=== PATIENT | male | born 1990 | race Caucasian/White ===

== ENCOUNTER 2019-01-14 17:38 | Emergency (ER) | payer MEDICAID ==
[~2019-01-14] VITALS: Ht 177.8 cm; Wt 84.1 kg
[2019-01-14] MEDS ORDERED: LORA0.5T2 PO (17:49)
[2019-01-14] MEDS ORDERED: OLAN5TAB2 PO (17:49)
[2019-01-14 18:13] LABS: BASOPHILS % (AUTO) 0.4 % (0.0-2.0); EOSINOPHILS % (AUTO) 0.1 % (1.0-6.0); HEMOGLOBIN 13.6 g/dL (13.5-17.5); LYMPHOCYTES # (AUTO) 1.6 K/uL (1.0-4.8); MEAN CORPUSCULAR VOLUME 85 fL (80-100); MONOCYTES % (AUTO) 6.5 % (2.0-9.0); NEUTROPHILS # (AUTO) 13.1 K/uL (1.8-7.7); PLATELET COUNT (AUTO) 393 K/uL (150-450); RED BLOOD CELL COUNT(AUTO) 4.68 MIL/uL (4.50-5.90)
[2019-01-14 18:26] LABS: ANION GAP 15 mmol/L (8-16); CALCIUM, TOTAL 9.9 mg/dL (8.8-10.5); CARBON DIOXIDE 22 mmol/L (22-29); CHLORIDE 103 mmol/L (98-107); CREATININE 1.33 mg/dL (0.60-1.30); GLOMERULAR FILTR. RATE CALC > 60 mL/min (>60); GLUCOSE,RANDOM 95 mg/dL (70-110); POTASSIUM 3.3 mmol/L (3.5-5.1); SODIUM SERUM 140 mmol/L (136-145); UREA NITROGEN, BLOOD 24 mg/dL (7-18)
[2019-01-14 18:34] LABS: ALANINE AMINOTRANSFERASE 27 U/L (12-78); ALBUMIN 4.1 g/dL (3.4-5.0); ALKALINE PHOSPHATASE 124 U/L (46-116); ASPARTATE AMINOTRANSFERASE 21 U/L (15-37); BILIRUBIN,TOTAL 0.5 mg/dL (0.1-1.0); TOTAL PROTEIN, SERUM 8.3 g/dL (6.4-8.2)
[2019-01-14 18:34] LABS: AMPHET/METH SCREEN,URINE NEGATIVE (NEGATIVE); BARBITURATE SCREEN, URINE NEGATIVE (NEGATIVE); BENZODIAZEPINES SCREEN,URINE NEGATIVE (NEGATIVE); CANNABINOID SCREEN,URINE NEGATIVE (NEGATIVE); COCAINE SCREEN,URINE NEGATIVE (NEGATIVE); METHADONE SCREEN, URINE NEGATIVE (NEGATIVE); OPIATE SCREEN,URINE NEGATIVE (NEGATIVE)
[2019-01-14 18:41] LABS: PHENCYCLIDINE SCREEN,URINE NEGATIVE (NEGATIVE)
[2019-01-14] MEDS ORDERED: LORazepam 2 MG TABLET PO ONE (19:00)
[2019-01-14 19:14] VITALS: BP 133/93
[2019-01-14 19:18] LABS: APPEARANCE,URINE CLEAR (CLEAR); BILIRUBIN,URINE NEGATIVE (NEGATIVE); GLUCOSE, URINE (UA) NEGATIVE (NEGATIVE); KETONES,URINE TRACE mg/dL (NEGATIVE); LEUKOCYTE ESTERASE ,URINE NEGATIVE (NEGATIVE); NITRATE,URINE NEGATIVE (NEGATIVE); OCCULT BLOOD,URINE NEGATIVE (NEGATIVE); PH,URINE 5.5 (5.0-8.0); PROTEIN,URINE NEGATIVE (NEGATIVE); UROBILINOGEN,URINE 0.2 mg/dL (<=1.0)
[2019-01-14] MEDS ORDERED: POTASSIUM CHLORIDE 20 MEQ ER TABLET PO ONE (19:30)
[2019-01-14] MEDS ORDERED: OLANZapine 5 MG RAPDIS TABLET PO ONE ×2 (20:45→21:00)
== END 2019-01-14 21:50 | disposition home or self-care (01) ==
LOC: EMS 17:38
DX: F31.9 Bipolar disorder, unspecified (principal); F32.9 Major depressive disorder, single episode, unspecified; F41.9 Anxiety disorder, unspecified; L55.9 Sunburn, unspecified; Z88.8 Allergy status to other drugs, medicaments and biological substances; Z79.899 Other long term (current) drug therapy
CPT/HCPCS: 36415; 71045; 80053; 80307; 81003; 85025; 99284; G0480

== ENCOUNTER 2019-01-24 06:39 | Emergency (ER) | payer MEDICAID ==
[~2019-01-24] VITALS: Ht 177.8 cm; Wt 88.6 kg
[~2019-01-24 06:39] MED LIST: AMOX1TAB16 PO; OLAN5TAB2 PO
[2019-01-24 07:09] LABS: BASOPHILS % (AUTO) 0.5 % (0.0-2.0); EOSINOPHILS % (AUTO) 1.5 % (1.0-6.0); HEMATOCRIT 38.6 % (41-53); LYMPHOCYTES # (AUTO) 1.5 K/uL (1.0-4.8); LYMPHOCYTES % (AUTO) 15.5 % (22.0-44.0); MEAN CORPUSCULAR HEMOGLOBIN 28.8 pg (26.0-34.0); MEAN CORPUSCULAR HGB CONC 33.6 G/dL (31.0-37.0); MEAN CORPUSCULAR VOLUME 86 fL (80-100); MONOCYTES # (AUTO) 0.6 K/uL (0.1-1.0); MONOCYTES % (AUTO) 6.1 % (2.0-9.0); NEUTROPHILS # (AUTO) 7.4 K/uL (1.8-7.7); NEUTROPHILS % (AUTO) 76.4 % (40.0-70.0); PLATELET COUNT (AUTO) 303 K/uL (150-450); RED BLOOD CELL COUNT(AUTO) 4.51 MIL/uL (4.50-5.90)
[2019-01-24 07:12] LABS: AMPHET/METH SCREEN,URINE NEGATIVE (NEGATIVE); BARBITURATE SCREEN, URINE NEGATIVE (NEGATIVE); BENZODIAZEPINES SCREEN,URINE NEGATIVE (NEGATIVE); CANNABINOID SCREEN,URINE NEGATIVE (NEGATIVE); COCAINE SCREEN,URINE NEGATIVE (NEGATIVE); METHADONE SCREEN, URINE NEGATIVE (NEGATIVE); OPIATE SCREEN,URINE NEGATIVE (NEGATIVE)
[2019-01-24 07:13] LABS: ANION GAP 10 mmol/L (8-16); CALCIUM, TOTAL 9.4 mg/dL (8.8-10.5); CARBON DIOXIDE 24 mmol/L (22-29); CHLORIDE 105 mmol/L (98-107); CREATININE 1.34 mg/dL (0.60-1.30); GLOMERULAR FILTR. RATE CALC > 60 mL/min (>60); GLUCOSE,RANDOM 99 mg/dL (70-110); POTASSIUM 3.6 mmol/L (3.5-5.1); SODIUM SERUM 139 mmol/L (136-145); UREA NITROGEN, BLOOD 18 mg/dL (7-18)
[2019-01-24 07:13] LABS: PHENCYCLIDINE SCREEN,URINE NEGATIVE (NEGATIVE)
[2019-01-24 07:19] LABS: ALANINE AMINOTRANSFERASE 26 U/L (12-78); ALBUMIN 3.8 g/dL (3.4-5.0); ALKALINE PHOSPHATASE 124 U/L (46-116); ASPARTATE AMINOTRANSFERASE 27 U/L (15-37); BILIRUBIN,TOTAL 0.5 mg/dL (0.1-1.0); TOTAL PROTEIN, SERUM 7.6 g/dL (6.4-8.2)
[2019-01-24] MEDS ORDERED: LORazepam 0.5 MG TABLET PO ONE (08:00)
[2019-01-24 08:29] VITALS: BP 142/79
[2019-01-28] MEDS ORDERED: ARIP300S IM (23:26)
== END 2019-01-24 08:50 | disposition home or self-care (01) ==
LOC: EMS 06:41
DX: F41.9 Anxiety disorder, unspecified (principal); F43.9 Reaction to severe stress, unspecified; F43.20 Adjustment disorder, unspecified; G47.00 Insomnia, unspecified; F31.9 Bipolar disorder, unspecified; F19.90 Other psychoactive substance use, unspecified, uncomplicated; Z88.8 Allergy status to other drugs, medicaments and biological substances
CPT/HCPCS: 36415; 80053; 80307; 85025; 99284; G0480

== ENCOUNTER 2019-01-24 09:29 | Emergency (ER) | payer MEDICAID ==
[~2019-01-24] VITALS: Ht 177.8 cm; Wt 88.6 kg
[2019-01-24] MEDS ORDERED: OLANZapine 5 MG TABLET PO ONE (10:00)
[2019-01-24 11:02] VITALS: BP 133/80
[2019-01-28] MEDS ORDERED: ARIP300S IM (23:26)
== END 2019-01-24 11:18 | disposition home or self-care (01) ==
LOC: EMS 09:29
DX: F41.9 Anxiety disorder, unspecified (principal); F31.9 Bipolar disorder, unspecified; F19.90 Other psychoactive substance use, unspecified, uncomplicated; Z88.8 Allergy status to other drugs, medicaments and biological substances

== ENCOUNTER 2019-02-13 15:52 | Emergency (ER) | payer MEDICAID ==
[~2019-02-13] VITALS: Ht 177.8 cm; Wt 90.0 kg
[~2019-02-13 15:52] MED LIST changes: -AMOX1TAB16 PO; +ARIP300S IM; -OLAN5TAB2 PO
[2019-02-13] MEDS ORDERED: LORazepam 2 MG TABLET PO ONE (16:30)
[2019-02-13] MEDS ORDERED: OLANZapine 5 MG TABLET PO ONE (16:30)
[2019-02-13 17:24] VITALS: BP 132/66
[2019-02-13 17:26] LABS: BASOPHILS % (AUTO) 0.5 % (0.0-2.0); EOSINOPHILS % (AUTO) 0.5 % (1.0-6.0); HEMATOCRIT 40.7 % (41-53); HEMOGLOBIN 13.8 g/dL (13.5-17.5); LYMPHOCYTES # (AUTO) 1.3 K/uL (1.0-4.8); LYMPHOCYTES % (AUTO) 13.2 % (22.0-44.0); MEAN CORPUSCULAR HGB CONC 33.8 G/dL (31.0-37.0); MEAN CORPUSCULAR VOLUME 86 fL (80-100); MONOCYTES # (AUTO) 0.6 K/uL (0.1-1.0); MONOCYTES % (AUTO) 6.7 % (2.0-9.0); NEUTROPHILS # (AUTO) 7.5 K/uL (1.8-7.7); NEUTROPHILS % (AUTO) 79.1 % (40.0-70.0); PLATELET COUNT (AUTO) 262 K/uL (150-450); RED BLOOD CELL COUNT(AUTO) 4.74 MIL/uL (4.50-5.90); RED CELL DISTRIBUTION WIDTH 13.4 % (11.5-14.5)
[2019-02-13 17:35] LABS: AMPHET/METH SCREEN,URINE NEGATIVE (NEGATIVE); BARBITURATE SCREEN, URINE NEGATIVE (NEGATIVE); BENZODIAZEPINES SCREEN,URINE NEGATIVE (NEGATIVE); CANNABINOID SCREEN,URINE NEGATIVE (NEGATIVE); COCAINE SCREEN,URINE NEGATIVE (NEGATIVE); METHADONE SCREEN, URINE NEGATIVE (NEGATIVE); OPIATE SCREEN,URINE NEGATIVE (NEGATIVE)
[2019-02-13 17:35] LABS: ANION GAP 16 mmol/L (8-16); CALCIUM, TOTAL 9.4 mg/dL (8.8-10.5); CARBON DIOXIDE 22 mmol/L (22-29); CHLORIDE 103 mmol/L (98-107); CREATININE 0.97 mg/dL (0.60-1.30); GLOMERULAR FILTR. RATE CALC > 60 mL/min (>60); GLUCOSE,RANDOM 90 mg/dL (70-110); POTASSIUM 3.4 mmol/L (3.5-5.1); SODIUM SERUM 141 mmol/L (136-145); UREA NITROGEN, BLOOD 9 mg/dL (7-18)
[2019-02-13 17:37] LABS: PHENCYCLIDINE SCREEN,URINE NEGATIVE (NEGATIVE)
[2019-02-13 17:41] LABS: ALANINE AMINOTRANSFERASE 16 U/L (12-78); ALBUMIN 4.3 g/dL (3.4-5.0); ALKALINE PHOSPHATASE 95 U/L (46-116); ASPARTATE AMINOTRANSFERASE 17 U/L (15-37); BILIRUBIN,TOTAL 0.4 mg/dL (0.1-1.0); TOTAL PROTEIN, SERUM 7.6 g/dL (6.4-8.2)
[2019-02-13] MEDS ORDERED: POTASSIUM CHLORIDE 10% 40 MEQ/30 ML LIQUID UDCUP PO ONE (18:15)
== END 2019-02-13 20:30 | disposition home or self-care (01) ==
LOC: EMS 15:55
DX: F41.9 Anxiety disorder, unspecified (principal); F10.129 Alcohol abuse with intoxication, unspecified; E87.6 Hypokalemia; F17.210 Nicotine dependence, cigarettes, uncomplicated; F31.9 Bipolar disorder, unspecified; F19.90 Other psychoactive substance use, unspecified, uncomplicated; Z88.8 Allergy status to other drugs, medicaments and biological substances; Y90.2 Blood alcohol level of 40-59 mg/100 ml
CPT/HCPCS: 36415; 80053; 80307; 85025; 99284; G0480

== ENCOUNTER 2019-02-17 20:54 | Emergency (ER) | payer MEDICAID ==
[~2019-02-17] VITALS: Ht 177.8 cm; Wt 95.5 kg
[~2019-02-17 20:54] MED LIST changes: +LITH300C3 PO; +OLAN5TAB2 PO
[2019-02-17 21:55] LABS: ANION GAP 9 mmol/L (8-16); BASOPHILS % (AUTO) 0.4 % (0.0-2.0); CALCIUM, TOTAL 9.4 mg/dL (8.8-10.5); CARBON DIOXIDE 28 mmol/L (22-29); CHLORIDE 101 mmol/L (98-107); CREATININE 1.16 mg/dL (0.60-1.30); EOSINOPHILS % (AUTO) 1.7 % (1.0-6.0); GLOMERULAR FILTR. RATE CALC > 60 mL/min (>60); GLUCOSE,RANDOM 102 mg/dL (70-110); HEMATOCRIT 38.6 % (41-53); HEMOGLOBIN 13.1 g/dL (13.5-17.5); LYMPHOCYTES # (AUTO) 1.9 K/uL (1.0-4.8); LYMPHOCYTES % (AUTO) 20.6 % (22.0-44.0); MEAN CORPUSCULAR HEMOGLOBIN 29.3 pg (26.0-34.0); MEAN CORPUSCULAR HGB CONC 33.9 G/dL (31.0-37.0); MEAN CORPUSCULAR VOLUME 86 fL (80-100); MONOCYTES # (AUTO) 0.7 K/uL (0.1-1.0); MONOCYTES % (AUTO) 7.6 % (2.0-9.0); NEUTROPHILS # (AUTO) 6.5 K/uL (1.8-7.7); NEUTROPHILS % (AUTO) 69.7 % (40.0-70.0); PLATELET COUNT (AUTO) 285 K/uL (150-450); POTASSIUM 3.6 mmol/L (3.5-5.1); RED BLOOD CELL COUNT(AUTO) 4.46 MIL/uL (4.50-5.90); RED CELL DISTRIBUTION WIDTH 13.4 % (11.5-14.5); SODIUM SERUM 138 mmol/L (136-145); UREA NITROGEN, BLOOD 23 mg/dL (7-18)
[2019-02-17 22:01] LABS: ALANINE AMINOTRANSFERASE 21 U/L (12-78); ALBUMIN 4.1 g/dL (3.4-5.0); ALKALINE PHOSPHATASE 104 U/L (46-116); ASPARTATE AMINOTRANSFERASE 27 U/L (15-37); BILIRUBIN,TOTAL 0.4 mg/dL (0.1-1.0); TOTAL PROTEIN, SERUM 7.3 g/dL (6.4-8.2)
[2019-02-18 03:52] VITALS: BP 122/88
[2019-02-18 04:45] LABS: AMPHET/METH SCREEN,URINE NEGATIVE (NEGATIVE); BARBITURATE SCREEN, URINE NEGATIVE (NEGATIVE); BENZODIAZEPINES SCREEN,URINE NEGATIVE (NEGATIVE); CANNABINOID SCREEN,URINE NEGATIVE (NEGATIVE); COCAINE SCREEN,URINE NEGATIVE (NEGATIVE); METHADONE SCREEN, URINE NEGATIVE (NEGATIVE); OPIATE SCREEN,URINE NEGATIVE (NEGATIVE)
[2019-02-18 04:53] LABS: PHENCYCLIDINE SCREEN,URINE NEGATIVE (NEGATIVE)
== END 2019-02-18 04:59 | disposition left against medical advice (07) ==
LOC: EMS 20:55
DX: F25.9 Schizoaffective disorder, unspecified (principal); F41.9 Anxiety disorder, unspecified; F31.9 Bipolar disorder, unspecified; F17.210 Nicotine dependence, cigarettes, uncomplicated; F15.10 Other stimulant abuse, uncomplicated; Z79.899 Other long term (current) drug therapy; Z98.890 Other specified postprocedural states; Z88.5 Allergy status to narcotic agent; Z88.8 Allergy status to other drugs, medicaments and biological substances
CPT/HCPCS: 36415; 80053; 80307; 85025; 99284; G0480

== ENCOUNTER 2019-03-24 01:47 | Inpatient (IN) | payer MEDICAID ==
[~2019-03-24] VITALS: Ht 177.8 cm; Wt 89.5 kg
[2019-03-24 03:18] LABS: ALANINE AMINOTRANSFERASE 32 U/L (12-78); ALBUMIN 3.9 g/dL (3.4-5.0); ALKALINE PHOSPHATASE 95 U/L (46-116); ANION GAP 9 mmol/L (8-16); ASPARTATE AMINOTRANSFERASE 25 U/L (15-37); BILIRUBIN,TOTAL 0.5 mg/dL (0.1-1.0); CALCIUM, TOTAL 9.3 mg/dL (8.8-10.5); CARBON DIOXIDE 26 mmol/L (22-29); CHLORIDE 106 mmol/L (98-107); CREATININE 1.12 mg/dL (0.60-1.30); GLOMERULAR FILTR. RATE CALC > 60 mL/min (>60); GLUCOSE,RANDOM 121 mg/dL (70-110); POTASSIUM 3.9 mmol/L (3.5-5.1); SODIUM SERUM 141 mmol/L (136-145); TOTAL PROTEIN, SERUM 7.1 g/dL (6.4-8.2)
[2019-03-24 03:24] LABS: BASOPHILS % (AUTO) 0.6 % (0.0-2.0); EOSINOPHILS % (AUTO) 2.3 % (1.0-6.0); HEMATOCRIT 39.2 % (41-53); HEMOGLOBIN 13.2 g/dL (13.5-17.5); LYMPHOCYTES # (AUTO) 1.8 K/uL (1.0-4.8); LYMPHOCYTES % (AUTO) 21.5 % (22.0-44.0); MEAN CORPUSCULAR HEMOGLOBIN 28.9 pg (26.0-34.0); MEAN CORPUSCULAR HGB CONC 33.7 G/dL (31.0-37.0); MEAN CORPUSCULAR VOLUME 86 fL (80-100); MONOCYTES # (AUTO) 0.7 K/uL (0.1-1.0); MONOCYTES % (AUTO) 8.4 % (2.0-9.0); NEUTROPHILS # (AUTO) 5.7 K/uL (1.8-7.7); NEUTROPHILS % (AUTO) 67.2 % (40.0-70.0); PLATELET COUNT (AUTO) 281 K/uL (150-450); RED BLOOD CELL COUNT(AUTO) 4.57 MIL/uL (4.50-5.90); RED CELL DISTRIBUTION WIDTH 13.6 % (11.5-14.5)
[2019-03-24 03:26] LABS: UREA NITROGEN, BLOOD 17 mg/dL (7-18)
[2019-03-24 03:30] LABS: AMPHET/METH SCREEN,URINE NEGATIVE (NEGATIVE); BARBITURATE SCREEN, URINE NEGATIVE (NEGATIVE); BENZODIAZEPINES SCREEN,URINE NEGATIVE (NEGATIVE); CANNABINOID SCREEN,URINE NEGATIVE (NEGATIVE); COCAINE SCREEN,URINE NEGATIVE (NEGATIVE); METHADONE SCREEN, URINE NEGATIVE (NEGATIVE); OPIATE SCREEN,URINE NEGATIVE (NEGATIVE)
[2019-03-24 03:35] LABS: PHENCYCLIDINE SCREEN,URINE NEGATIVE (NEGATIVE)
[2019-03-24] MEDS ORDERED: LORazepam 1 MG TABLET PO ONE (03:45)
[2019-03-24] MEDS ORDERED: OLANZapine 5 MG RAPDIS TABLET PO PRN (04:00)
[2019-03-24 06:12] VITALS: BP 128/79
[2019-03-24 08:16] VITALS: BP 108/61
[2019-03-24] MEDS ORDERED: IBUPROFEN 600 MG TABLET PO PRN (11:45)
[2019-03-24] MEDS ORDERED: ACETAMINOPHEN 325 MG TABLET PO PRN ×2 (11:45→12:00)
[2019-03-24] MEDS ORDERED: PROMETHAZINE HCL 25 MG TABLET PO PRN (12:00)
[2019-03-24] MEDS ORDERED: MAG HYDROX/AL HYDROX/SIMETH ES 30 ML SUSPENSION UDCUP PO PRN (12:00)
[2019-03-24] MEDS ORDERED: LOPERAMIDE HCL 2 MG CAPSULE PO PRN (12:00)
[2019-03-24] MEDS ORDERED: MAGNESIUM HYDROXIDE SUSPENSION 30 ML UDCUP PO PRN (12:00)
[2019-03-24] MEDS ORDERED: GuaiFENesin/D-METHORPHAN [SUGAR-FREE] 200-20MG/10 ML SYRUP UDCUP PO PRN (12:00)
[2019-03-24] MEDS ORDERED: TUBERCULIN, PURIFIED PROTEIN DERIVATIVE 5 TU/0.1 ML SYRINGE ID ONE (12:00)
[2019-03-24] MEDS ORDERED: HydrOXYzine PAMOATE 50 MG CAPSULE PO PRN (12:00)
[2019-03-24 16:00] VITALS: BP 110/64
[2019-03-24] MEDS: THIAMINE HCL 100 MG TABLET PO SCH (16:30)
[2019-03-24] MEDS: LORazepam 2 MG TABLET PO PRN (16:30)
[2019-03-24] MEDS: ZOLPIDEM TARTRATE 10 MG TABLET PO PRN (20:14)
[2019-03-24] MEDS ORDERED: OLANZapine 5 MG RAPDIS TABLET PO SCH (21:00)
[2019-03-24] MEDS ORDERED: DIVALPROEX SODIUM 500 MG ER TABLET PO SCH (21:00)
[2019-03-25] MEDS: NALTREXONE HCL 50 MG TABLET PO SCH (08:14)
[2019-03-25] MEDS: FOLIC ACID 1 MG TABLET PO SCH (08:14)
[2019-03-25] MEDS: MULTIVITAMINS WITH MINERALS, THERAPEUTIC TABLET PO SCH (08:14)
[2019-03-25] MEDS: THIAMINE HCL 100 MG TABLET PO SCH ×2 (08:14→17:05)
[2019-03-25 08:30] VITALS: BP 110/69
[2019-03-25 08:48] LABS: CHOL/HDL RATIO 2.8 (4.2-7.3); FREE T4 (FREE THYROXINE) 1.35 ng/dL (0.76-1.46); THYROID STIMULATING HORMONE 0.46 uIU/mL (0.36-3.74)
[2019-03-25] MEDS ORDERED: FLUoxetine HCL 20 MG CAPSULE PO SCH (09:00)
[2019-03-25] MEDS: LORazepam 2 MG TABLET PO PRN ×2 (13:34→20:50)
[2019-03-25 16:00] VITALS: BP 140/77
[2019-03-25] MEDS: ZOLPIDEM TARTRATE 10 MG TABLET PO PRN (20:50)
[2019-03-25] MEDS ORDERED: LITHIUM CARBONATE 300 MG CAPSULE PO SCH (21:00)
[2019-03-26] MEDS ORDERED: ARIPiprazole 15 MG TABLET PO SCH (09:00)
[2019-03-26] MEDS: FOLIC ACID 1 MG TABLET PO SCH (09:42)
[2019-03-26] MEDS: THIAMINE HCL 100 MG TABLET PO SCH ×2 (09:42→16:22)
[2019-03-26] MEDS: MULTIVITAMINS WITH MINERALS, THERAPEUTIC TABLET PO SCH (09:42)
[2019-03-26] MEDS: NALTREXONE HCL 50 MG TABLET PO SCH (09:43)
[2019-03-26] MEDS: LORazepam 2 MG TABLET PO PRN (14:33)
[2019-03-26] MEDS ORDERED: LITH300C3 PO ×2 (15:42→16:09)
[2019-03-26] MEDS ORDERED: NALT50TA PO (15:42)
[2019-03-26] MEDS ORDERED: ARIP15TA2 PO ×2 (15:42→16:08)
[2019-03-26 16:00] VITALS: BP 102/64
[2019-03-26] MEDS ORDERED: NALT50TA6 PO (16:09)
== END 2019-03-26 18:49 | disposition home or self-care (01) | DRG 750 ==
LOC: EMS 01:50 → B3A 04:26
PROVIDERS: ADMIT Psychiatry & Neurology Psychiatry; ATTEND Psychiatry & Neurology Psychiatry
DX: F25.9 Schizoaffective disorder, unspecified (principal); R45.851 Suicidal ideations; Z91.19 Patient's noncompliance with other medical treatment and regimen; D64.9 Anemia, unspecified; E87.6 Hypokalemia; F17.200 Nicotine dependence, unspecified, uncomplicated; F14.90 Cocaine use, unspecified, uncomplicated; F15.90 Other stimulant use, unspecified, uncomplicated
CPT/HCPCS: 84439; 84443; G0480

== ENCOUNTER 2019-03-28 13:36 | Emergency (ER) | payer MEDICAID ==
[~2019-03-28] VITALS: Ht 177.8 cm; Wt 86.0 kg
[~2019-03-28 13:36] MED LIST changes: +ARIP15TA2 PO; +NALT50TA PO; +NALT50TA6 PO
[2019-03-28 13:47] VITALS: BP 119/69
[2019-03-28] MEDS ORDERED: ACETAMINOPHEN 500 MG TABLET PO ONE (14:00)
== END 2019-03-28 14:14 | disposition home or self-care (01) ==
LOC: EMS 13:38
DX: F31.9 Bipolar disorder, unspecified (principal); M79.672 Pain in left foot; M79.671 Pain in right foot; F17.210 Nicotine dependence, cigarettes, uncomplicated; F15.90 Other stimulant use, unspecified, uncomplicated; Z98.890 Other specified postprocedural states; Z88.5 Allergy status to narcotic agent; Z88.8 Allergy status to other drugs, medicaments and biological substances

== ENCOUNTER 2019-05-06 16:52 | Inpatient (IN) | payer MEDICAID ==
[~2019-05-06] VITALS: Ht 177.8 cm; Wt 78.6 kg
[~2019-05-06 16:52] MED LIST changes: -ARIP300S IM; -NALT50TA PO; -OLAN5TAB2 PO
[2019-05-06 20:30] LABS: BASOPHILS % (AUTO) 0.7 % (0.0-2.0); EOSINOPHILS % (AUTO) 0.5 % (1.0-6.0); HEMATOCRIT 41.5 % (41-53); HEMOGLOBIN 14.3 g/dL (13.5-17.5); LYMPHOCYTES # (AUTO) 1.9 K/uL (1.0-4.8); LYMPHOCYTES % (AUTO) 21.7 % (22.0-44.0); MEAN CORPUSCULAR HEMOGLOBIN 28.6 pg (26.0-34.0); MEAN CORPUSCULAR HGB CONC 34.4 G/dL (31.0-37.0); MEAN CORPUSCULAR VOLUME 83 fL (80-100); MONOCYTES # (AUTO) 0.7 K/uL (0.1-1.0); MONOCYTES % (AUTO) 7.8 % (2.0-9.0); NEUTROPHILS # (AUTO) 6.1 K/uL (1.8-7.7); NEUTROPHILS % (AUTO) 69.3 % (40.0-70.0); PLATELET COUNT (AUTO) 288 K/uL (150-450); RED BLOOD CELL COUNT(AUTO) 4.98 MIL/uL (4.50-5.90); RED CELL DISTRIBUTION WIDTH 13.4 % (11.5-14.5)
[2019-05-06 20:39] LABS: ANION GAP 14 mmol/L (8-16); CALCIUM, TOTAL 8.9 mg/dL (8.8-10.5); CARBON DIOXIDE 23 mmol/L (22-29); CHLORIDE 107 mmol/L (98-107); CREATININE 1.17 mg/dL (0.60-1.30); GLOMERULAR FILTR. RATE CALC > 60 mL/min (>60); GLUCOSE,RANDOM 100 mg/dL (70-110); POTASSIUM 4.4 mmol/L (3.5-5.1); SODIUM SERUM 144 mmol/L (136-145); UREA NITROGEN, BLOOD 27 mg/dL (7-18)
[2019-05-06] MEDS ORDERED: LORazepam 2 MG/ML VIAL IM ONE (20:45)
[2019-05-06 20:47] LABS: ALANINE AMINOTRANSFERASE 19 U/L (12-78); ALBUMIN 4.2 g/dL (3.4-5.0); ALKALINE PHOSPHATASE 102 U/L (46-116); ASPARTATE AMINOTRANSFERASE 26 U/L (15-37); BILIRUBIN,TOTAL 0.6 mg/dL (0.1-1.0); TOTAL PROTEIN, SERUM 7.6 g/dL (6.4-8.2)
[2019-05-06 21:09] LABS: AMPHET/METH SCREEN,URINE POSITIVE (NEGATIVE); BARBITURATE SCREEN, URINE NEGATIVE (NEGATIVE); BENZODIAZEPINES SCREEN,URINE NEGATIVE (NEGATIVE); CANNABINOID SCREEN,URINE NEGATIVE (NEGATIVE); COCAINE SCREEN,URINE NEGATIVE (NEGATIVE); METHADONE SCREEN, URINE NEGATIVE (NEGATIVE); OPIATE SCREEN,URINE NEGATIVE (NEGATIVE); PHENCYCLIDINE SCREEN,URINE NEGATIVE (NEGATIVE)
[2019-05-06] MEDS ORDERED: OLANZapine 5 MG RAPDIS TABLET PO PRN (21:15)
[2019-05-06 21:34] LABS: LITHIUM < 0.20 mmol/L (0.60-1.20)
[2019-05-07 00:41] VITALS: BP 103/76
[2019-05-07] MEDS ORDERED: INFLUENZA VIRUS VACCINE QVS 2019-20 (3YR+)/PF 60 MCG/0.5 ML SYRINGE IM ONE (04:30)
[2019-05-07 08:00] VITALS: BP 121/78
[2019-05-07 08:56] LABS: CHOL/HDL RATIO 2.7 (4.2-7.3)
[2019-05-07] MEDS: LORazepam 2 MG TABLET PO PRN ×2 (13:15→20:20)
[2019-05-07] MEDS ORDERED: IBUPROFEN 400 MG TABLET PO PRN (13:30)
[2019-05-07] MEDS ORDERED: ALBUTEROL SULFATE HFA 90 MCG/PUFF 8 GM INHALER IH PRN (13:30)
[2019-05-07] MEDS ORDERED: ONDANSETRON HCL 4 MG TABLET PO PRN (13:30)
[2019-05-07] MEDS ORDERED: MAG HYDROX/AL HYDROX/SIMETH ES 30 ML SUSPENSION UDCUP PO PRN (13:30)
[2019-05-07] MEDS ORDERED: ACETAMINOPHEN 325 MG TABLET PO PRN (13:30)
[2019-05-07] MEDS ORDERED: MAGNESIUM HYDROXIDE SUSPENSION 30 ML UDCUP PO PRN (13:30)
[2019-05-07] MEDS ORDERED: DOCUSATE SODIUM 100 MG CAPSULE PO PRN (13:30)
[2019-05-07] MEDS ORDERED: GuaiFENesin/D-METHORPHAN [SUGAR-FREE] 200-20MG/10 ML SYRUP UDCUP PO PRN (13:30)
[2019-05-07] MEDS ORDERED: LOPERAMIDE HCL 2 MG CAPSULE PO PRN (13:30)
[2019-05-07] MEDS ORDERED: NICOTINE 14 MG/24 HOUR PATCH TD PRN (13:30)
[2019-05-07] MEDS ORDERED: PETROLATUM,WHITE 28 GM JELLY TP PRN (13:30)
[2019-05-07] MEDS ORDERED: CloNIDine HCL 0.1 MG TABLET PO PRN (13:30)
[2019-05-07 16:02] VITALS: BP 116/60
[2019-05-07] MEDS: ZOLPIDEM TARTRATE 10 MG TABLET PO PRN (20:20)
[2019-05-07] MEDS: LITHIUM CARBONATE 300 MG CAPSULE PO SCH (20:20)
[2019-05-08 03:00] VITALS: BP 109/69
[2019-05-08 08:30] VITALS: BP 128/79
[2019-05-08] MEDS: ARIPiprazole 15 MG TABLET PO SCH (08:33)
[2019-05-08] MEDS: LORazepam 2 MG TABLET PO PRN ×2 (08:54→20:37)
[2019-05-08 16:11] VITALS: BP 117/87
[2019-05-08] MEDS: ZOLPIDEM TARTRATE 10 MG TABLET PO PRN (20:37)
[2019-05-08] MEDS: LITHIUM CARBONATE 300 MG CAPSULE PO SCH (20:37)
[2019-05-09 06:39] VITALS: BP 111/57
[2019-05-09 08:10] VITALS: BP 133/90
[2019-05-09] MEDS: ARIPiprazole 15 MG TABLET PO SCH (08:32)
[2019-05-09] MEDS: LORazepam 2 MG TABLET PO PRN ×2 (09:56→19:51)
[2019-05-09 16:11] VITALS: BP 120/77
[2019-05-09] MEDS: LITHIUM CARBONATE 300 MG CAPSULE PO SCH (20:04)
[2019-05-10 06:06] VITALS: BP 104/63
[2019-05-10] MEDS: LORazepam 2 MG TABLET PO PRN ×3 (06:10→20:09)
[2019-05-10 08:17] VITALS: BP 115/69
[2019-05-10] MEDS: ARIPiprazole 15 MG TABLET PO SCH (08:51)
[2019-05-10 16:08] VITALS: BP 116/81
[2019-05-10] MEDS: LITHIUM CARBONATE 300 MG CAPSULE PO SCH (20:09)
[2019-05-10] MEDS: ZOLPIDEM TARTRATE 10 MG TABLET PO PRN (20:09)
[2019-05-11 06:19] VITALS: BP 105/73
[2019-05-11 08:15] VITALS: BP 132/77
[2019-05-11] MEDS: ARIPiprazole 15 MG TABLET PO SCH (09:10)
[2019-05-11] MEDS: LORazepam 2 MG TABLET PO PRN (09:10)
[2019-05-11 16:14] VITALS: BP 113/69
== END 2019-05-11 17:54 | disposition home or self-care (01) | DRG 750 ==
LOC: EMS 16:54 → B3A 23:00
PROVIDERS: ADMIT Psychiatry & Neurology Psychiatry; ATTEND Psychiatry & Neurology Psychiatry
DX: F25.9 Schizoaffective disorder, unspecified (principal); F10.10 Alcohol abuse, uncomplicated; F17.210 Nicotine dependence, cigarettes, uncomplicated; F41.9 Anxiety disorder, unspecified; F90.9 Attention-deficit hyperactivity disorder, unspecified type; F19.10 Other psychoactive substance abuse, uncomplicated; Z71.51 Drug abuse counseling and surveillance of drug abuser; Z71.41 Alcohol abuse counseling and surveillance of alcoholic; Z88.8 Allergy status to other drugs, medicaments and biological substances
CPT/HCPCS: 99291; G0480; J2060

== ENCOUNTER 2019-05-22 19:56 | Inpatient (IN) | payer MEDICAID ==
[~2019-05-22] VITALS: Ht 177.8 cm; Wt 78.5 kg
[~2019-05-22 19:56] MED LIST changes: -NALT50TA6 PO
[2019-05-22] MEDS ORDERED: LORA-1001 PO (21:26)
[2019-05-22] MEDS ORDERED: LITH300T3 PO (21:26)
[2019-05-22] MEDS ORDERED: DiphenhydrAMINE HCL 50 MG CAPSULE PO ONE (21:45)
[2019-05-22] MEDS ORDERED: LORazepam 2 MG TABLET PO ONE (21:45)
[2019-05-22 21:49] LABS: BASOPHILS % (AUTO) 0.5 % (0.0-2.0); EOSINOPHILS % (AUTO) 0.1 % (1.0-6.0); HEMATOCRIT 41.4 % (41-53); HEMOGLOBIN 14.3 g/dL (13.5-17.5); LYMPHOCYTES # (AUTO) 1.2 K/uL (1.0-4.8); LYMPHOCYTES % (AUTO) 9.8 % (22.0-44.0); MEAN CORPUSCULAR HEMOGLOBIN 28.8 pg (26.0-34.0); MEAN CORPUSCULAR HGB CONC 34.5 G/dL (31.0-37.0); MEAN CORPUSCULAR VOLUME 84 fL (80-100); MONOCYTES # (AUTO) 0.8 K/uL (0.1-1.0); MONOCYTES % (AUTO) 6.4 % (2.0-9.0); NEUTROPHILS # (AUTO) 9.9 K/uL (1.8-7.7); NEUTROPHILS % (AUTO) 83.2 % (40.0-70.0); PLATELET COUNT (AUTO) 342 K/uL (150-450); RED BLOOD CELL COUNT(AUTO) 4.95 MIL/uL (4.50-5.90); RED CELL DISTRIBUTION WIDTH 13.2 % (11.5-14.5)
[2019-05-22 22:04] LABS: ANION GAP 11 mmol/L (8-16); CALCIUM, TOTAL 9.4 mg/dL (8.8-10.5); CARBON DIOXIDE 26 mmol/L (22-29); CHLORIDE 103 mmol/L (98-107); CREATININE 1.17 mg/dL (0.60-1.30); GLOMERULAR FILTR. RATE CALC > 60 mL/min (>60); GLUCOSE,RANDOM 122 mg/dL (70-110); POTASSIUM 4.2 mmol/L (3.5-5.1); SODIUM SERUM 140 mmol/L (136-145); UREA NITROGEN, BLOOD 20 mg/dL (7-18)
[2019-05-22 22:10] LABS: ALANINE AMINOTRANSFERASE 28 U/L (12-78); ALBUMIN 4.4 g/dL (3.4-5.0); ALKALINE PHOSPHATASE 92 U/L (46-116); ASPARTATE AMINOTRANSFERASE 26 U/L (15-37); BILIRUBIN,TOTAL 0.5 mg/dL (0.1-1.0); TOTAL PROTEIN, SERUM 8.2 g/dL (6.4-8.2)
[2019-05-22 22:50] LABS: LITHIUM < 0.20 mmol/L (0.60-1.20)
[2019-05-22 22:51] LABS: AMPHET/METH SCREEN,URINE POSITIVE (NEGATIVE); BARBITURATE SCREEN, URINE NEGATIVE (NEGATIVE); BENZODIAZEPINES SCREEN,URINE NEGATIVE (NEGATIVE); CANNABINOID SCREEN,URINE NEGATIVE (NEGATIVE); COCAINE SCREEN,URINE NEGATIVE (NEGATIVE); METHADONE SCREEN, URINE NEGATIVE (NEGATIVE); OPIATE SCREEN,URINE POSITIVE (NEGATIVE); PHENCYCLIDINE SCREEN,URINE NEGATIVE (NEGATIVE)
[2019-05-23] MEDS ORDERED: LORazepam 2 MG/ML VIAL IM ONE ×2 (00:45→10:45)
[2019-05-23] MEDS ORDERED: ZOLPIDEM TARTRATE 10 MG TABLET PO PRN (01:00)
[2019-05-23 03:24] VITALS: BP 118/78
[2019-05-23 08:24] VITALS: BP 119/85
[2019-05-23] MEDS ORDERED: ACETAMINOPHEN 325 MG TABLET PO PRN (09:00)
[2019-05-23] MEDS ORDERED: BACITRACIN 28.4 GM OINTMENT TP PRN (09:00)
[2019-05-23] MEDS ORDERED: PETROLATUM,WHITE 28 GM JELLY TP PRN (09:00)
[2019-05-23] MEDS ORDERED: BENZOCAINE/MENTHOL LOZENGE MM PRN (09:00)
[2019-05-23] MEDS ORDERED: IBUPROFEN 600 MG TABLET PO PRN (09:00)
[2019-05-23] MEDS ORDERED: CloNIDine HCL 0.1 MG TABLET PO PRN (09:00)
[2019-05-23] MEDS ORDERED: DOCUSATE SODIUM 100 MG CAPSULE PO PRN (09:00)
[2019-05-23] MEDS ORDERED: ALBUTEROL SULFATE HFA 90 MCG/PUFF 8 GM INHALER IH PRN (09:00)
[2019-05-23] MEDS ORDERED: OMEPRAZOLE 20 MG CAPSULE PO PRN (09:00)
[2019-05-23] MEDS ORDERED: LOPERAMIDE HCL 2 MG CAPSULE PO PRN (09:00)
[2019-05-23] MEDS ORDERED: MAGNESIUM HYDROXIDE SUSPENSION 30 ML UDCUP PO PRN (09:00)
[2019-05-23] MEDS ORDERED: MAG HYDROX/AL HYDROX/SIMETH ES 30 ML SUSPENSION UDCUP PO PRN (09:00)
[2019-05-23] MEDS ORDERED: ONDANSETRON HCL 4 MG TABLET PO PRN (09:00)
[2019-05-23] MEDS: LORazepam 2 MG TABLET PO PRN (09:31)
[2019-05-23] MEDS ORDERED: HALOPERIDOL LACTATE 5 MG/ML VIAL IM ONE (10:45)
[2019-05-23] MEDS ORDERED: DiphenhydrAMINE HCL 50 MG/ML VIAL IM ONE (10:45)
[2019-05-23 16:32] VITALS: BP 116/62
[2019-05-23] MEDS: LITHIUM CARBONATE 300 MG CAPSULE PO SCH (20:50)
[2019-05-24] MEDS ORDERED: INFLUENZA VIRUS VACCINE QVS 2019-20 (3YR+)/PF 60 MCG/0.5 ML SYRINGE IM ONE (01:00)
[2019-05-24 06:53] VITALS: BP 106/64
[2019-05-24 08:04] LABS: CHOL/HDL RATIO 2.8 (4.2-7.3)
[2019-05-24 08:28] VITALS: BP 136/76
[2019-05-24] MEDS: ARIPiprazole 15 MG TABLET PO SCH (08:46)
[2019-05-24] MEDS: OLANZapine 5 MG RAPDIS TABLET PO PRN (08:47)
[2019-05-24] MEDS: LORazepam 2 MG TABLET PO PRN ×2 (08:53→16:47)
[2019-05-24 19:05] VITALS: BP 113/74
[2019-05-24] MEDS: LITHIUM CARBONATE 300 MG CAPSULE PO SCH (20:37)
[2019-05-25 06:27] VITALS: BP 122/78
[2019-05-25 08:39] VITALS: BP 105/61
[2019-05-25] MEDS: ARIPiprazole 15 MG TABLET PO SCH (09:00)
[2019-05-25] MEDS: LORazepam 2 MG TABLET PO PRN ×2 (11:14→16:13)
[2019-05-25 16:19] VITALS: BP 102/63
[2019-05-25] MEDS: LITHIUM CARBONATE 300 MG CAPSULE PO SCH (21:05)
[2019-05-26 06:12] VITALS: BP 104/79
[2019-05-26] MEDS: ARIPiprazole 15 MG TABLET PO SCH (08:12)
[2019-05-26 08:25] VITALS: BP 136/91
[2019-05-26] MEDS: LORazepam 2 MG TABLET PO PRN ×2 (11:11→16:08)
[2019-05-26] MEDS: OLANZapine 5 MG RAPDIS TABLET PO PRN (11:11)
[2019-05-26 16:15] VITALS: BP 140/89
[2019-05-26 16:21] VITALS: BP 144/88
[2019-05-26] MEDS: LITHIUM CARBONATE 300 MG CAPSULE PO SCH (20:59)
[2019-05-27 06:33] VITALS: BP 120/71
[2019-05-27] MEDS: LORazepam 2 MG TABLET PO PRN (08:16)
[2019-05-27] MEDS: ARIPiprazole 15 MG TABLET PO SCH (08:16)
[2019-05-27 08:30] VITALS: BP 130/77
[2019-05-27] MEDS ORDERED: NICOTINE 21 MG/24 HOUR PATCH TD SCH (09:30)
[2019-05-27 16:09] VITALS: BP 120/82
== END 2019-05-27 17:43 | disposition home or self-care (01) | DRG 750 ==
LOC: EMS 20:00 → B3A 05-23 01:00
PROVIDERS: ADMIT Psychiatry & Neurology Psychiatry; ATTEND Psychiatry & Neurology Psychiatry
DX: F20.0 Paranoid schizophrenia (principal); Z59.0 Homelessness; F10.20 Alcohol dependence, uncomplicated; F15.10 Other stimulant abuse, uncomplicated; F31.9 Bipolar disorder, unspecified; F17.210 Nicotine dependence, cigarettes, uncomplicated; K59.00 Constipation, unspecified; G47.00 Insomnia, unspecified; F41.9 Anxiety disorder, unspecified; Z88.8 Allergy status to other drugs, medicaments and biological substances; Z71.51 Drug abuse counseling and surveillance of drug abuser; Z71.6 Tobacco abuse counseling; Z28.21 Immunization not carried out because of patient refusal
CPT/HCPCS: 87081; 96372; G0480; J1200; J1630; J2060

== ENCOUNTER 2020-10-09 17:45 | Inpatient (IN) | payer MEDICAID ==
[~2020-10-09] VITALS: Ht 177.8 cm; Wt 76.0 kg
[~2020-10-09 17:45] MED LIST changes: -ARIP15TA2 PO; +ARIP15TA27 PO
[2020-10-09] MEDS ORDERED: OLAN5TAB40 PO (20:10)
[2020-10-09 20:19] LABS: BASOPHILS % (AUTO) 0.4 % (0.0-2.0); EOSINOPHILS % (AUTO) 2.5 % (1.0-6.0); HEMATOCRIT 38.4 % (41-53); HEMOGLOBIN 13.1 g/dL (13.5-17.5); LYMPHOCYTES # (AUTO) 2.3 K/uL (1.0-4.8); LYMPHOCYTES % (AUTO) 23.7 % (22.0-44.0); MEAN CORPUSCULAR HEMOGLOBIN 29.8 pg (26.0-34.0); MEAN CORPUSCULAR HGB CONC 34.2 G/dL (31.0-37.0); MEAN CORPUSCULAR VOLUME 87 fL (80-100); MONOCYTES # (AUTO) 0.6 K/uL (0.1-1.0); MONOCYTES % (AUTO) 5.9 % (2.0-9.0); NEUTROPHILS # (AUTO) 6.5 K/uL (1.8-7.7); NEUTROPHILS % (AUTO) 67.5 % (40.0-70.0); PLATELET COUNT (AUTO) 241 K/uL (150-450); RED BLOOD CELL COUNT(AUTO) 4.39 MIL/uL (4.50-5.90)
[2020-10-09 20:26] LABS: ANION GAP 18 mmol/L (8-16); CALCIUM, TOTAL 8.7 mg/dL (8.8-10.5); CARBON DIOXIDE 19 mmol/L (22-29); CHLORIDE 103 mmol/L (98-107); GLOMERULAR FILTR. RATE CALC > 60 mL/min (>60); GLUCOSE,RANDOM 94 mg/dL (70-110); POTASSIUM 3.7 mmol/L (3.5-5.1); SODIUM SERUM 140 mmol/L (136-145); UREA NITROGEN, BLOOD 18 mg/dL (7-18)
[2020-10-09 20:32] LABS: ALANINE AMINOTRANSFERASE 29 U/L (12-78); ALBUMIN 3.9 g/dL (3.4-5.0); ALKALINE PHOSPHATASE 91 U/L (46-116); ASPARTATE AMINOTRANSFERASE 28 U/L (15-37); BILIRUBIN,TOTAL 0.4 mg/dL (0.1-1.0); TOTAL PROTEIN, SERUM 7.7 g/dL (6.4-8.2)
[2020-10-09 20:50] LABS: COVID AG,FIA SOURCE NASOPHARYNGEAL
[2020-10-09] MEDS ORDERED: ZOLPIDEM TARTRATE 10 MG TABLET PO PRN (21:00)
[2020-10-09] MEDS ORDERED: HALOPERIDOL 5 MG TABLET PO PRN (21:00)
[2020-10-09 21:12] LABS: AMPHET/METH SCREEN,URINE NEGATIVE (NEGATIVE); BARBITURATE SCREEN, URINE NEGATIVE (NEGATIVE); BENZODIAZEPINES SCREEN,URINE NEGATIVE (NEGATIVE); CANNABINOID SCREEN,URINE NEGATIVE (NEGATIVE); COCAINE SCREEN,URINE NEGATIVE (NEGATIVE); METHADONE SCREEN, URINE NEGATIVE (NEGATIVE); OPIATE SCREEN,URINE NEGATIVE (NEGATIVE)
[2020-10-09 21:15] LABS: PHENCYCLIDINE SCREEN,URINE NEGATIVE (NEGATIVE)
[2020-10-10 01:24] VITALS: BP 131/79
[2020-10-10] MEDS: LORazepam 2 MG TABLET PO PRN ×3 (01:29→18:00)
[2020-10-10 02:18] VITALS: BP 131/79
[2020-10-10 07:33] LABS: CHOL/HDL RATIO 3.3 (4.2-7.3); CHOLESTEROL 165 mg/dL (131-200); HDL CHOLESTEROL 50 mg/dL (40-60); LDL CHOL (CALC.) 95 mg/dL (0-130); TRIGLYCERIDES 102 mg/dL (15-150)
[2020-10-10] MEDS ORDERED: GuaiFENesin/D-METHORPHAN [SUGAR-FREE] 200-20MG/10 ML SYRUP UDCUP PO PRN (08:30)
[2020-10-10] MEDS ORDERED: PETROLATUM,WHITE 28 GM JELLY TP PRN (08:30)
[2020-10-10] MEDS ORDERED: ONDANSETRON HCL 4 MG TABLET PO PRN (08:30)
[2020-10-10] MEDS ORDERED: DOCUSATE SODIUM 100 MG CAPSULE PO PRN (08:30)
[2020-10-10] MEDS ORDERED: CloNIDine HCL 0.1 MG TABLET PO PRN (08:30)
[2020-10-10] MEDS ORDERED: NICOTINE 14 MG/24 HOUR PATCH TD PRN (08:30)
[2020-10-10] MEDS ORDERED: LOPERAMIDE HCL 2 MG CAPSULE PO PRN (08:30)
[2020-10-10] MEDS ORDERED: ACETAMINOPHEN 325 MG TABLET PO PRN (08:30)
[2020-10-10] MEDS ORDERED: MAGNESIUM HYDROXIDE SUSPENSION 30 ML UDCUP PO PRN (08:30)
[2020-10-10] MEDS ORDERED: ALBUTEROL SULFATE HFA 90 MCG/PUFF 8 GM INHALER IH PRN (08:30)
[2020-10-10] MEDS ORDERED: IBUPROFEN 400 MG TABLET PO PRN (08:30)
[2020-10-10] MEDS ORDERED: MAG HYDROX/AL HYDROX/SIMETH ES 30 ML SUSPENSION UDCUP PO PRN (08:30)
[2020-10-10 08:33] VITALS: BP 100/60
[2020-10-10] MEDS: ARIPiprazole 15 MG TABLET PO SCH (11:02)
[2020-10-10 14:46] LABS: LITHIUM < 0.20 mmol/L (0.60-1.20)
[2020-10-10 16:19] VITALS: BP 102/62
[2020-10-10] MEDS: LITHIUM CARBONATE 300 MG CAPSULE PO SCH (20:52)
[2020-10-11 06:30] VITALS: BP 125/68
[2020-10-11 08:38] VITALS: BP 100/65
[2020-10-11] MEDS: LORazepam 2 MG TABLET PO PRN ×2 (09:05→17:16)
[2020-10-11] MEDS: ARIPiprazole 15 MG TABLET PO SCH (09:05)
[2020-10-11] MEDS: LITHIUM CARBONATE 300 MG CAPSULE PO SCH ×2 (12:52→20:26)
[2020-10-11 16:15] VITALS: BP 112/69
[2020-10-12 06:42] VITALS: BP 110/76
[2020-10-12 09:11] VITALS: BP 100/60
[2020-10-12] MEDS: LITHIUM CARBONATE 300 MG CAPSULE PO SCH ×2 (09:53→21:15)
[2020-10-12] MEDS: ARIPiprazole 15 MG TABLET PO SCH (09:53)
[2020-10-12] MEDS: ESCITALOPRAM OXALATE 10 MG TABLET PO SCH (09:53)
[2020-10-12 16:21] VITALS: BP 117/65
[2020-10-13 00:54] VITALS: BP 121/68
[2020-10-13] MEDS: LORazepam 2 MG TABLET PO PRN ×2 (07:12→14:46)
[2020-10-13 08:17] VITALS: BP 100/66
[2020-10-13] MEDS: ARIPiprazole 15 MG TABLET PO SCH (08:52)
[2020-10-13] MEDS: LITHIUM CARBONATE 300 MG CAPSULE PO SCH ×2 (08:52→21:52)
[2020-10-13] MEDS: ESCITALOPRAM OXALATE 10 MG TABLET PO SCH (08:52)
[2020-10-13 16:18] VITALS: BP 101/75
[2020-10-14 06:05] VITALS: BP 121/80
[2020-10-14 08:22] VITALS: BP 104/69
[2020-10-14] MEDS: ESCITALOPRAM OXALATE 10 MG TABLET PO SCH (09:40)
[2020-10-14] MEDS: ARIPiprazole 15 MG TABLET PO SCH (09:40)
[2020-10-14] MEDS: LITHIUM CARBONATE 300 MG CAPSULE PO SCH ×2 (09:40→21:28)
[2020-10-14] MEDS: LORazepam 2 MG TABLET PO PRN (13:57)
[2020-10-14 16:30] VITALS: BP 117/74
[2020-10-15 06:10] VITALS: BP 102/64
[2020-10-15] MEDS: LORazepam 2 MG TABLET PO PRN ×2 (06:52→08:33)
[2020-10-15 08:14] VITALS: BP 114/75
[2020-10-15] MEDS: ESCITALOPRAM OXALATE 10 MG TABLET PO SCH (08:33)
[2020-10-15] MEDS: ARIPiprazole 15 MG TABLET PO SCH (08:33)
[2020-10-15] MEDS: LITHIUM CARBONATE 300 MG CAPSULE PO SCH ×2 (08:33→20:40)
[2020-10-15 16:09] VITALS: BP 141/87
[2020-10-16 06:26] VITALS: BP 117/75
[2020-10-16] MEDS: LORazepam 2 MG TABLET PO PRN ×3 (06:35→16:09)
[2020-10-16 08:28] VITALS: BP 112/73
[2020-10-16] MEDS: ARIPiprazole 15 MG TABLET PO SCH (08:30)
[2020-10-16] MEDS: LITHIUM CARBONATE 300 MG CAPSULE PO SCH ×2 (08:30→20:29)
[2020-10-16] MEDS: ESCITALOPRAM OXALATE 10 MG TABLET PO SCH (09:34)
[2020-10-16 16:16] VITALS: BP 137/90
[2020-10-17 04:56] VITALS: BP 117/80
[2020-10-17] MEDS: LORazepam 2 MG TABLET PO PRN ×2 (06:31→08:37)
[2020-10-17 08:17] VITALS: BP 120/85
[2020-10-17] MEDS: ESCITALOPRAM OXALATE 10 MG TABLET PO SCH (08:36)
[2020-10-17] MEDS: LITHIUM CARBONATE 300 MG CAPSULE PO SCH (08:36)
[2020-10-17] MEDS: ARIPiprazole 15 MG TABLET PO SCH (08:37)
[2020-10-17] MEDS ORDERED: ARIP15TA27 PO (10:23)
[2020-10-17] MEDS ORDERED: ESCI-8 PO (10:23)
[2020-10-17] MEDS ORDERED: LITH300C3 PO (10:24)
== END 2020-10-17 10:50 | disposition home or self-care (01) | DRG 753 ==
LOC: EMS 17:48 → B3A 21:42
PROVIDERS: ADMIT Psychiatry & Neurology Child & Adolescent Psychiatry; ATTEND Psychiatry & Neurology Child & Adolescent Psychiatry
DX: F31.9 Bipolar disorder, unspecified (principal); R45.851 Suicidal ideations; E83.51 Hypocalcemia; F20.9 Schizophrenia, unspecified; Z20.822 Contact with and (suspected) exposure to COVID-19; F41.1 Generalized anxiety disorder; F17.210 Nicotine dependence, cigarettes, uncomplicated; D64.9 Anemia, unspecified; R10.13 Epigastric pain; Z59.0 Homelessness; Z88.8 Allergy status to other drugs, medicaments and biological substances; Z79.899 Other long term (current) drug therapy
CPT/HCPCS: 80053; 85025; 87426; 99285; G0480